=== PATIENT | male | born 1965 | race Caucasian/White ===

== ENCOUNTER 2019-05-07 11:07 | Outpatient (CLI) | payer OTHER ==
[~2019-05-07] VITALS: Ht 172.7 cm; Wt 97.7 kg
--- NOTE | ~2019-05-07 | HEMODYNAMI ---
PATIENT:LISA ORDAZ MEDICAL RECORD: [id number] : 65 LOCATION:[facility] ADMISSION DATE: 05/07/19 Generatedon:05/07/201913:22 Patient name: LISA ORDAZ Patient #: [id number] : 1965 Date of study: 05/07/2019 Page: Of Hemodynamic Procedure Report Patient Data Patient Demographics Procedure consent was obtained First Name: LISA Gender: Male Last Name: ORLIN : 1965 Patient #: [id number] Age: 54 year(s) Race: Unknown SSN: [id number] Additional ID: [id number] Contact details Address: [address] [place] [address] State: [place] City: [place] Zip code: [address] Past Medical History Allergies: No known allergies Admission Admission Data Admission Date: 05/07/2019 Admission Time: 11:07 Admit Source: Other Insurance Payor: Private health insurance [facility] #: [id number] Height (in.): 68 BSA: 2.1 (m2) Height (cm.): 172.72 BMI: 32.39 (kg/m2) Weight (lbs.): 213 Weight (kg.): 96.62 Lab Results Lab Result Date: 05/07/2019 Lab Result Time: 0:00 Biochemistry Name Units Result Min Max BUN mg/dl 22 --(----)-* 7 18 Creatinine mg/dl 1 --(--*-)-- 0.6 1.3 Procedure Procedure Types Cath Procedure Diagnostic Procedure LHC LHC w/Coronaries Sedation Charges Moderate Sedation up to 15 minutes Procedure Description Procedure Date Procedure Date: 05/07/2019 Procedure Start Time: 13:04 Procedure End Time: 13:19 Procedure Staff Name Function Yuan Zuniga MD Performing Physician Shaquille Schultz RT Monitor Abiodun Collins RT Scrub Noemí Valdes RT Scrub Edgar Arredondo RN Nurse Indication Shortness of breath Procedure Data Cath Procedure Fluoroscopy Diagnostic fluoroscopy Total fluoroscopy Time: 3.9 time: 3.9 min min Diagnostic fluoroscopy Total fluoroscopy dose: 711 dose: 711 mGy mGy Contrast Material Contrast Material Type Amount (ml) Isovue 300 87 Entry Location Entry Primary Successful Side Size Upsize Upsize Entry Closure Grissom ccessful Closure Location (Fr) 1 (Fr) 2 (Fr) Remarks Device Remarks Radial Right 6 Fr Mechanical artery Short Compression Estimated blood loss: 5 ml Diagnostic catheters Device Type Used For End Catheter Placement DIAGNOSTIC Dell 110cm Procedure 5Fr catheter ([id number]) Procedure Complications No complications Procedure Medications Medication Administration Route Dosage 0.9% NaCl I.V. 100 ml/hr Oxygen etCO2 Nasal cannula 2 l/min Heparin Flush Bag added to field 2 bags (1000units/500ml NS) Lidocaine 2% added to field 20 Radial Cocktail added to field 1 syringe (Verapamil 2mg/Nitro 400mcg/Heparin 1500units) Versed I.V. 2 mg Fentanyl I.V. 100 mcg Versed I.V. 2 mg Radial Cocktail I.A. 1 syringe (Verapamil 2mg/Nitro 400mcg/Heparin 1500units) Fentanyl I.V. 100 mcg Hemodynamics Rest BSA: 2.1 (m2) O2 Consumption: Estimated: 244.43 (ml/min) O2 Consumption indexed: Estimated:116.4 (ml/min/m) Heart Rate: 64 (bpm) Pressure Samples Time Site Value (mmHg) Purpose Heart Use Rate(bpm) 13:08 LV 113/5,12 Snapshot 87 13:08 AO 96/56(72) Pullback 71 13:08 LV 113/2,14 Pullback 71 Gradients Valve Time Site 1 Site 2 Mean SEP/DFP Peak To Heart Use (mmHg) (sec/min) Peak Rate (mmHg) (bpm) Aortic 13:08 LV AO 10 13 17 71 113/2,14 96/56(72) Calculations Valve P-P Mean Valve Index Valve Source Name Gradient Area Flow (cm2) Aortic 17 10 17 10 Snapshots Pre Cath Intra NCS Post Cath Vital Signs Time Heart Resp SPO2 etCO2 NIBP Rhythm Pain Sedation Rate (ipm) (%) (mmHg) (mmHg) Status Level (bpm) 12:46:36 60 12 98 0 129/63(92) NSR 0 (11) 10(A) , No pain 12:51:31 62 12 94 37.4 123/65(87) NSR 0 (11) 10(A) , No pain 12:55:33 65 13 91 45.6 118/70(93) NSR 0 (11) 10(A) , No pain 12:59:45 62 20 92 36.7 113/61(79) NSR 0 (11) 10(A) , No pain 13:04:31 66 20 96 34.4 107/60(81) NSR 0 (11) 9(A) , No pain 13:08:43 63 18 92 38.1 86/57(72) NSR 0 (11) 9(A) , No pain 13:13:36 64 14 94 46.3 113/60(84) NSR 0 (11) 9(A) , No pain 13:17:48 78 17 94 41.9 106/65(86) NSR 0 (11) 10(A) , No pain Medications Time Medication Route Dose Verified Delivered Reason Notes Effectiveness by by 12:52:38 0.9% NaCl I.V. 100 Edgar Edgar Per ml/hr Maria Elena Arredondo physician RN RN 12:52:48 Oxygen etCO2 2 l/min Edgar Edgar for low 02 Nasal Lorigan Lorigan sats cannula RN RN 12:52:58 Heparin Flush added 2 bags Edgar Edgar used for Bag to Lorigan Lorigan procedure (1000units/500ml [facility] RN RN NS) 12:53:09 Lidocaine 2% added 20ml Edgar Edgar for local to vial Lorigan Lorigan anesthetic field RN RN 12:53:19 Radial Cocktail added 1 Edgar Edgar used for (Verapamil to syringe Lorigan Lorigan procedure 2mg/Nitro field RN RN 400mcg/Heparin 1500units) 12:56:27 Versed I.V. 2 mg Edgar Edgar for sedation Maria Elena Arredondo RN RN 12:56:35 Fentanyl I.V. 100 mcg Edgar Edgar for sedation Maria Elena Arredondo RN RN 13:01:28 Versed I.V. 2 mg Edgar Edgar for sedation Maria Elena Arredondo RN RN 13:06:19 Radial Cocktail I.A. 1 Edgar Yuan for (Verapamil syringe Maria Elena blount 2mg/Nitro RN 400mcg/Heparin 1500units) 13:06:31 Fentanyl I.V. 100 mcg Edgar Edgar for sedation Lorigan Lorigan RN bank teller Log Time Note 12:30:18 Edgar Arredondo RN sent for patient. Start room use. 12:34:09 Informed consent obtained and on chart 12:36:12 Admit Source: Other 12:39:55 Patient allergic to No known allergies 12:40:54 Patient Height : 68 inches 12:41:06 Patient Weight : 213 lbs 12:41:13 Insurance Payor : Private health insurance 12:44:04 Lab Result : BUN 22 mg/dl 12:44:04 Lab Result : Creatinine 1 mg/dl 12:44:14 Indication : Shortness of breath 12:44:43 ACCPatient has been prescribed/administered the following anti-anginal medication within the last 2 weeks: Beta Stephen, ARB 12:45:17 Procedure Status Elective Heart Cath (OP). 12:45:24 Time tracking: Regular hours (M-F 7:00 - 5:00) 12:45:27 Plan of Care:Hemodynamics will remain stable., Cardiac rhythm will remain stable., Comfort level will be maintained., Respiratory function will remain adequate., Patient/ family verbilizes understanding of procedure., Procedure tolerated without complication., Recovers from procedure without complications.. 12:45:30 Patient received from Pre/Post Procedure Room to CCL 1 Alert and oriented. Tansferred to table in Supine position. 12:45:32 Warm blankets applied, and joseline hugger turned on for patient comfort. 12:45:33 Correct patient and procedure confirmed by team. 12:45:33 ECG and BP/O2 sat monitors applied to patient. 12:45:34 Vital chart was started 12:45:36 Baseline sample Acquired. 12:45:40 Rhythm: sinus rhythm 12:45:42 Baseline sample Acquired. 12:45:44 Full Disclosure recording started 12:45:57 H&P Date Dictated: 04/27/2019 Within 30 days and on chart., H&P Addendum completed by physician on day of procedure. (MUST COMPLETE FOR ALL OUTPATIENTS). 12:45:58 Pre-procedure instructions explained to patient. 12:45:59 Pre-op teaching completed and patient verbalized understanding. 12:46:00 Family in waiting room. 12:46:02 Patient NPO since Breakfast. 12:46:04 Is the patient allergic to Iodine/contrast media? No. 12:46:16 Is patient on blood thinner?No 12:46:18 Patient diabetic? No. 12:46:20 Previous problem with sedation/anesthesia? No ? 12:46:22 Snore? Yes 12:46:22 Sleep apnea? Yes 12:46:23 Deviated septum? No 12:46:24 Opens mouth fully? Yes 12:46:25 Sticks out tongue? Yes 12:46:30 Airway obstruction? Yes COPD 12:46:33 Dentures? No ? 12:46:36 Pre procedure: right dorsailis pedis pulse 2+ Normal; easily identifiable; not easily obliterated 12:46:37 Modified Kamran's test Ulnar < 7 seconds 12:46:38 Patient pain scale 0/10 ?. 12:46:45 IV patent on arrival in left forearm with 0.9% NaCl at [facility]. 12:46:47 Lab results completed and on chart. 12:46:50 Right Radial & Right Groin area was prepped with chlora-prep and draped in sterile fashion 12:46:50 Alarms reviewed by R. N. 12:46:51 Sharps counted by scrub and verified by R.N. 12:46:53 Use device set Radial Dx or PCI 12:46:54 ACIST Syringe (84654) opened to sterile field. 12:46:54 Medline Cath Pack ([id number]) opened to sterile field. 12:46:54 Bag Decanter (2002S) opened to sterile field. 12:46:55 ACIST Hand Control (07412) opened to sterile field. 12:46:55 ACIST Manifold (38430) opened to sterile field. 12:46:55 Tegaderm 4 x 4 (1626W) opened to sterile field. 12:46:56 MBrace Wrist Support ([id number]) opened to sterile field. 12:47:00 EMERALD Guide Wire (415-153) opened to sterile field. 12:47:00 SHEATH 6FR RAIN (6689299) opened to sterile field. 12:48:42 Physician arrived 12:48:42 --------ALL STOP TIME OUT------ 12:48:42 Final Timeout: patient, procedure, and site verified with staff and physician. All members of the team are in agreement. 12:48:45 Right Radial & Right Groin site verified by team. 12:48:51 Fire Safety Assessment: A--An alcohol-based skin anteseptic being used preoperatively., C--Open oxygen or nitrous oxide is being used., D--An ESU, laser, or fiber-optic light is being used. 12:48:55 Physical assessment completed. ASA score P 2 - A patient with mild systemic disease as per Yuan Zuniga MD. 12:49:13 2) 60-89 Mildly reduced kidney function, and other findings (as for stage 1) point to kidney disease. 12:49:37 Maximum allowable contrast dose (3.7 X eGFR X 0.75)230 ml. 12:49:40 Sedation plan: IV Moderate Sedation Medication:Versed, Fentanyl 12:52:38 0.9% NaCl 100 ml/hr I.V. was administered by Edgar Arredondo RN; Per physician; 12:52:48 Oxygen 2 l/min etCO2 Nasal cannula was administered by Edgar Arredondo RN; for low 02 sats; 12:52:58 Heparin Flush Bag (1000units/500ml NS) 2 bags added to field was administered by Edgar Arredondo RN; used for procedure; 12:53:09 Lidocaine 2% 20ml vial added to field was administered by Edgar Arredondo RN; for local anesthetic; 12:53:19 Radial Cocktail (Verapamil 2mg/Nitro 400mcg/Heparin 1500units) 1 syringe added to field was administered by Edgar Arredondo RN; used for procedure; 12:56:27 Versed 2 mg I.V. was administered by Edgar Arredondo RN; for sedation; 12:56:35 Fentanyl 100 mcg I.V. was administered by Edgar Arredondo RN; for sedation; 13:01:28 Versed 2 mg I.V. was administered by Edgar Arredondo RN; for sedation; 13:04:12 Procedure started. 13:04:16 Local anesthetic to right radial artery with Lidocaine 2% by Yuan Zuniga MD.INITIAL ACCESS ONLY 13:05:23 A 6 Fr Short sheath was inserted into the Right Radial artery 13:06:19 Radial Cocktail (Verapamil 2mg/Nitro 400mcg/Heparin 1500units) 1 syringe I.A. was administered by Yuan Zuniga MD; for vasodilation; 13:06:27 A DIAGNOSTIC Dell 110cm 5Fr catheter ([id number]) was advanced over the wire and used for Procedure. 13:06:31 Fentanyl 100 mcg I.V. was administered by Edgar Arredondo RN; for sedation; 13:08:07 LV gram done using MOORE 13:08:09 Injector settings: Ml/sec: 5, Volume: 15, 13:08:10 LV hemodynamics recorded. 13:08:30 EF : 45 % 13:10:14 LCA angiography performed. 13:12:04 RCA angiography performed. 13:15:43 Catheter removed. 13:15:56 ZEPHYR REGULAR TR BAND (808780) opened to sterile field. 13:16:09 Sheath removed intact; hemostasis achieved with Mechanical Compression to the Right Radial artery. 13:16:13 Procedure ended.(Physican Out) 13:17:54 ACCDominant side:Left 13:18:01 Fluoroscopy time 03.90 minutes. 13:18:05 Fluoroscopy dose: 711 mGy 13:18:05 Flurop Dose total: 711 13:18:13 Dose Area Product 93461 mGy/cm. 13:18:16 Contrast amount:Isovue 300 87ml. 13:18:19 Maximum allowable dose exceeded? No. 13:18:19 Sharps counted by scrub and verified by R.N. 13:18:24 TR band inflated with 12cc of air. 13:18:25 Insertion/operative site no bleeding no hematoma. 13:18:29 Post right radial artery:stable, soft, clean and dry 13:18:30 Post Procedure Pulses reassessed and unchanged 13:18:33 Post-procedure physical assessment completed. ASA score P 2 - A patient with mild systemic disease as per Yuan Zuniga MD. 13:18:36 Post procedure rhythm: unchanged. 13:18:40 Estimated blood loss: 5 ml 13:18:41 Post procedure instruction explained to patient.Patient verbalizes understanding. 13:18:42 Patient needs reinforcement of post procedure teaching. 13:18:54 Procedure type changed to Cath procedure, Diagnostic procedure, LHC, LHC w/Coronaries, Sedation Charges, Moderate Sedation up to 15 minutes 13:19:10 Procedure and supply charges have been captured, reviewed, submitted and are correct. 13:19:12 Procedure Complication : No complications 13:19:14 Vital chart was stopped 13:19:14 See physician's report for complete and final results. 13:19:15 Report given to Pre/Post Procedure Room. 13:19:17 Patient transfered to Pre/Post Procedure Room with Stretcher. 13:19:20 Procedure ended. 13:19:20 Full Disclosure recording stopped 13:19:26 End room use (Document Last) Device Usage Item Name Manufacture Quantity Catalog Hospital Part Current Minima l Lot# / Number Charge Number Stock Stock Serial# Code ACIST Acist 1 88378 204874 [id number] [id number] 20 Syringe Medical (34722) Systems Inc Medline Medline 1 [id number] 210014 60405 294778 5 Cath Pack ([id number]) Bag Microtek 1 2001S 109513 85226 434058 5 Decanter Medical Inc. () ACIST Hand Acist 1 81829 891661 555206 327398 5 Control Medical (16855) Systems Inc ACIST Acist 1 02990 406232 356278 062081 5 Manifold Medical (56007) Systems Inc Tegaderm 4 3M 1 1626W 008331 879860 877084 5 x 4 (1626W) MBrace Advanced 1 140-0250-00 074701 57349 679636 5 Wrist Vascular Support Dynamics (198325469) EMERALD Cardinal 1 502-455 444341 462612 826429 5 Guide Wire Health (150-455) SHEATH 6FR Cardinal 1 6884251 462753 9102087 123389 5 [facility] Health (3699467) DIAGNOSTIC Terumo 1 40-5023 511908 132607 737423 5 Dell 110cm 5Fr catheter (748299) ZEPHYR Cardinal 1 814782 376914 5804166 406447 5 REGULAR TR Health BAND (258865) Signature Audit [place] Stage Time Signature Unsigned Intra-Procedure 05/07/2019 Shaquille Schultz 1:22:44 PM RT(R) Signatures Performing Physician : Signature : Yuan Zuniga MD Date : Time : Monitor : Shaquille Schultz RT Signature : Date : Time : Nurse : Edgar Lorigan Signature : RN Date : Time : [address] [place] [address]
[2019-05-07] MEDS ORDERED: METOPROLOL TART50 MG PO (11:16)
[2019-05-07] MEDS ORDERED: K-TAB10 MEQ PO (11:16)
[2019-05-07] MEDS ORDERED: LEXAPRO20 MG PO (11:16)
[2019-05-07] MEDS ORDERED: FUROSEMIDE20 MG PO (11:16)
[2019-05-07] MEDS ORDERED: CRESTOR20 MG PO (11:17)
[2019-05-07] MEDS ORDERED: ABILIFY10 MG PO (11:17)
[2019-05-07] MEDS ORDERED: LOSARTAN POTASSIUM/H PO (11:19)
[2019-05-07] MEDS ORDERED: BAYER CHEWABLE81 MG PO (11:20)
[2019-05-07 11:52] VITALS: BP 141/70; Ht 172.7 cm; Wt 97.7 kg
[2019-05-07 12:14] LABS: CALC OSMOLALITY 277 mosm/kg (275-300); CALCIUM 9.4 mg/dL (8.5-10.1); CARBON DIOXIDE 29.3 mmol/L (21.0-32.0); CHLORIDE - SERUM 102 mmol/L (98-107); GLUCOSE 87 mg/dL (74-106); SODIUM 138 mmol/L (136-145); UREA NITROGEN 22 mg/dL (7-18); eGFR NON AFRICAN AMERICAN 83 mL/min (90-120)
[2019-05-07 12:30] LABS: CHOL - HDL RATIO 4.1 ratio (2.3-4.9); LDL-HDL RATIO 1.9 ratio (1.5-3.5)
[2019-05-07 12:46] LABS: BASOPHILS 0.5 % (0-2); EOSINOPHILS 2.1 % (0-7); HEMATOCRIT 46.3 % (42.0-54.0); HEMOGLOBIN 15.8 g/dL (13.5-17.5); IMMATURE GRANULOCYTES 0.2 % (0-5); MCH 31.1 pg (26.0-34.0); MCHC 34.1 g/dL (31.0-37.0); MCV 91.1 fL (80.0-100.0); MEAN PLATELET VOLUME 11.2 fL (7.4-10.4); MONOCYTES 7.8 % (2-11); NEUTROPHILS 59.4 % (40-80); PLATELET COUNT 200 10x3/uL (130-400); RBC 5.08 10x6/uL (4.20-6.10); RDW 13.9 % (11.5-14.5); WBC 10.1 10x3/uL (4.8-10.8)
--- NOTE | 2019-05-07 13:54 | NUR ---
SANDWICH AND PO FLUIDS SERVED. PT IS ALERT AND DENIES ANY C/O. ZEPHYR BAND IS CDI TO RIGHT WRIST, FINGERS WARM AND CAP REFILL IS BRISK. SINUS ERIN, RATE IS 59. BP IS 109/56.
--- NOTE | 2019-05-07 14:16 | NUR ---
BAND CDI RIGHT WRIST, FINGERS WARM AND CAP REFILL IS BRISK. PT HAS LATRICE SANDWICH AND PO FLUIDS WITH NO NAUSEA. VSS.
--- NOTE | 2019-05-07 14:24 | NUR ---
PT ALERT, SITTING UP IN BED, VISITING WITH . DENIES ANY C/O. BAND IS CDI, FINGERS WARM AND CAP REFILL IS BRISK.
--- NOTE | 2019-05-07 14:57 | NUR ---
2 CC OF AIR WEANED FROM TR BAND WITH NO BLEEDING NOTED. FINGERS WARM AND CAP REFILL IS BRISK. PT IS ALERT AND DENIES ANY C/O.
--- NOTE | 2019-05-07 15:17 | NUR ---
3 CC OF AIR HAS BEEN WEANED FROM BAND WITH NO BLEEDING NOTED.
--- NOTE | 2019-05-07 15:47 | NUR ---
1535 ALL REMAINING AIR WEANED FROM TR BAND WITH NO BLEEDING NOTED. FINGERS WARM AND PULSES PALPABLE. PT DRESSING FOR DC IWTH ASSIST. DC INSTRUCTIONS REVIEWED WITH PT WHO VERBALIZES UNDERSTANDING. DR MERRITT'S NURSE HAS ROUNDED ON PT AND HE HAS APPOINTMENT AT THAT CLINIC ON TUESDAY.
--- NOTE | 2019-05-07 16:14 | NUR ---
1600 2X2 AND TEGADERM REMAIN CDI TO RIGHT WRIST, WRIST IMMOBILIZER IN PLACE. RADIAL PULSE PALPABLE. FINGERS WARM AND CAP REFILL IS BRISK. PT IS ALERT AND DENIES ANY C/O. HAS AMBULATED TO THE BATHROOM AND VOIDED QS. PT ESCORTED TO PRIVATE AUTO VIA WC BY NURSE WITH DRIVING HIM HOME.
== END 2019-05-07 16:00 | disposition home or self-care (01) ==
LOC: D.CATH 11:07
PROVIDERS: ATTEND Internal Medicine Cardiovascular Disease
DX: I25.110 Atherosclerotic heart disease of native coronary artery with unstable angina pectoris (principal); I51.9 Heart disease, unspecified; Z01.812 Encounter for preprocedural laboratory examination

== ENCOUNTER 2019-05-15 10:00 | Inpatient (IN) | payer OTHER ==
[2019-05-14 11:15] LABS: BASOPHILS 0.5 % (0-2); EOSINOPHILS 3.2 % (0-7); HEMATOCRIT 43.7 % (42.0-54.0); HEMOGLOBIN 15.1 g/dL (13.5-17.5); IMMATURE GRANULOCYTES 0.2 % (0-5); LYMPHOCYTES 24.6 % (15-50); MCHC 34.6 g/dL (31.0-37.0); MCV 89.7 fL (80.0-100.0); MEAN PLATELET VOLUME 10.6 fL (7.4-10.4); MONOCYTES 9.1 % (2-11); NEUTROPHILS 62.4 % (40-80); PLATELET COUNT 201 10x3/uL (130-400); RBC 4.87 10x6/uL (4.20-6.10); RDW 13.9 % (11.5-14.5); WBC 10.8 10x3/uL (4.8-10.8)
[2019-05-14 11:25] LABS: APTT 29.1 SECONDS (22.8-39.4); INR 0.96 (0.85-1.17); PROTIME 12.3 SECONDS (11.6-15.0)
[2019-05-14 11:32] LABS: ALBUMIN 3.8 g/dL (3.4-5.0); BILIRUBIN - TOTAL 0.48 mg/dL (0.2-1.3); CARBON DIOXIDE 29.6 mmol/L (21.0-32.0); CREATININE - SERUM 1.1 mg/dL (0.6-1.3); PHOSPHOROUS 3.4 mg/dL (2.5-4.9); POTASSIUM - SERUM 3.6 mmol/L (3.5-5.1); PROTEIN - SERUM 7.2 g/dL (6.4-8.2); URIC ACID 7.1 mg/dL (2.6-7.2)
[2019-05-14 11:33] LABS: APPEARANCE CLEAR (CLEAR); BILIRUBIN NEGATIVE (NEGATIVE); COLOR YELLOW (YELLOW); GLUCOSE 1000 mg/dL (NEGATIVE); KETONE NEGATIVE (NEGATIVE); NITRITE NEGATIVE (NEGATIVE); PROTEIN NEGATIVE (NEGATIVE); UROBILINOGEN NORMAL (NORMAL)
[2019-05-14 11:53] LABS: T4 THYROXIN - FREE 0.87 ng/dL (0.76-1.46); THYROID STIMULATING HORMONE 3.3 uIU/mL (0.36-3.74)
[~2019-05-15] VITALS: Ht 172.7 cm; Wt 90.9 kg
[~2019-05-15 10:00] MED LIST: ABILIFY10 MG PO; BAYER CHEWABLE81 MG PO; CRESTOR20 MG PO; FUROSEMIDE20 MG PO; K-TAB10 MEQ PO; LEXAPRO20 MG PO; LOSARTAN POTASSIUM/H PO; METOPROLOL TART50 MG PO
[2019-05-17] VITALS (43 sets, daily range): BP systolic 97–177; BP diastolic 54–83; BMI 29.5
[2019-05-18] VITALS (28 sets, daily range): BP systolic 108–145; BP diastolic 50–83
[2019-05-18 06:54] LABS: ALBUMIN 3.1 g/dL (3.4-5.0); ANION GAP 11.7 mmol/L (8-16); BILIRUBIN - TOTAL 0.42 mg/dL (0.2-1.3); CALCIUM 7.8 mg/dL (8.5-10.1); CARBON DIOXIDE 27.5 mmol/L (21.0-32.0); CREATININE - SERUM 1.2 mg/dL (0.6-1.3); POTASSIUM - SERUM 4.2 mmol/L (3.5-5.1); PROTEIN - SERUM 5.9 g/dL (6.4-8.2)
[2019-05-18 07:41] LABS: HEMOGLOBIN 11.9 g/dL (13.5-17.5); MCH 30.1 pg (26.0-34.0); MCHC 33.1 g/dL (31.0-37.0); MCV 90.9 fL (80.0-100.0); RBC 3.96 10x6/uL (4.20-6.10); RDW 14.2 % (11.5-14.5)
--- NOTE | 2019-05-18 08:01 | OP ---
PATIENT NAME: LISA ORDAZ MEDICAL RECORD: [id number] :65 LOCATION:D.CVI D.CV03 ADMISSION DATE:05/17/19 SURGEON: CECIL MERRITT MD DATE OF OPERATION: 05/17/2019 SURGEON: Cecil Merritt MD ASSISTANTS: 1. Nahum Simmons MD 2. Eleno Flanagan OPERATIONS PERFORMED: 1. Coronary artery bypass graft times 3 (left internal mammary artery to LAD, reverse saphenous vein graft from aorta to obtuse marginal, and aorta to posterior descending artery). 2. Endoscopic saphenous vein harvest. 3. Lysis of intrapleural adhesions. PREOPERATIVE DIAGNOSIS: Coronary artery disease. POSTOPERATIVE DIAGNOSES: Coronary artery disease plus ischemic cardiomyopathy. ANESTHESIA: General endotracheal anesthesia. ESTIMATED BLOOD LOSS: Total cardiopulmonary bypass with Cell Saver retransfusion. COMPLICATIONS: None. SPECIMENS: None. CONDITION: Stable. DISPOSITION: CV ICU. OPERATIVE FINDINGS: 1. Transesophageal echocardiography revealed 30% ejection fraction with 1+ mitral regurgitation. After separation from cardiopulmonary bypass, on low-dose dopamine, the patient had 40% ejection fraction with continued septal dyskinesis and only trace mitral regurgitation. 2. The left internal mammary artery to LAD was deep intraepicardial 2.0-mm vessel. 3. The circumflex and bifurcating obtuse marginal had severe disease, 1.25-mm thin-walled vessel. 4. The right coronary artery and ongoing right coronary artery were severely calcified throughout with some moderate disease in the posterior descending artery, which was a 1.25-mm vessel, again a thin-walled vessel. 5. The patient had a large fatty heart. 6. Adhesions to the left upper lobe were taken down using electrocautery. OPERATIVE INDICATION: Coronary artery disease with increasing symptoms. OPERATIVE SUMMARY IN DETAIL: The patient was brought to the operating suite. General anesthesia was obtained. The patient was prepped and draped. Greater saphenous vein was harvested endoscopically from the right lower extremity. OPERATIVE REPORT [id number] LISA ORDAZ Side branches were divided with electrocautery. The vessel was ligated proximally and distally, and removed. Side branches were tied and thin sites were oversewn. The phys assistant surgeon for the case was Dr. Simmons. His contribution consisted of harvesting the vein graft, tying the branches, oversewing the thin spots, and ensuring hemostasis in the vein. His use saved approximately 30-45 minutes of general anesthesia time. The leg was irrigated, closed in 2 layers, and later wrapped with an elastic wrap. Median sternotomy incision was made. Subcutaneous tissue was divided with electrocautery. Sternum was divided with a saw. Left hemisternum was elevated. Left pleural cavity was entered. Left internal mammary vein was taken down as a pedicle graft. Sternal retractor was placed. Pericardium was opened. Heparin was given. Aorta was cannulated. Dual stage venous cannula was inserted. Internal mammary was clipped distally and made ready for anastomosis. Activated clotting time was appropriately elevated. The patient was placed on cardiopulmonary bypass. Sites for distal anastomosis were selected. Antegrade cardioplegia cannula was inserted. The patient's temperature was allowed to drift downwardly. Cross-clamp was placed. Cardioplegia was given antegrade and this was repeated at 15-minute intervals including down the completed vein grafts. Distal anastomoses were performed in standard technique and proximal anastomosis with single cross-clamp technique. Aortic root was de-aired by removing the clamp, tying the proximal anastomosis, deairing the vein grafts, and then restoring the flow. The patient initially had some ventricular dysrhythmias that responded to amiodarone and eventually a full sinus rhythm, weaned from cardiopulmonary bypass and was stable. The patient was decannulated. Aortic cannulation site was oversewn with a nonpledgeted Prolene suture. Protamine was given. Thorough irrigation was undertaken. Grafts lay appropriately. The drains were placed in the mediastinum and the left pleural cavity with the tip in the right pleural cavity. Ventricular pacing wires were placed. The pericardial fat was loosely reapproximated in the midline. Left chest was investigated for any bleeding, evacuated, and drains were placed. Sternum was closed with wires. Fascia was closed. Subcutaneous tissue was closed. Skin was closed. Dermabond was placed. Needle and sponge counts were reported as correct. The patient was taken to the ICU in stable condition. TRANSINT:[id number] Voice Confirmation ID: [id number] DOCUMENT ID: [id number] CECIL MERRITT MD at 0801 CC: ASCENCION JACOBO M.D. and ALFONSO BARRIOS MD [id number] DICTATION DATE: 05/17/19 1434 BICYCLE INSPECTOR: 05/17/19 1637 ADM IN [facility] [address] [place] [address]
--- NOTE | 2019-05-18 19:44 | MORECARE ---
CASE MANAGEMENT DISCHARGE SUMMARY PATIENT: LISA ORDAZ UNIT: [id number] ADM DATE: 05/17/19 AGE: 54 : 65 SEX: M ROOM/BED: D.03 AUTHOR: GERA,DOC PHYSICIAN: REFERRING PHYSICIAN: CECIL MERRITT MD DATE OF SERVICE: 05/18/19 Discharge Plan Patient Name[facility]ISA ORDA[facility] [place] [facility] 1965 Planned Disposition: Home Anticipated Discharge Date: Discharge Date: Expected LOS: Initial Reviewer: [email or web address] Initial Review Date: 05/17/2019 Generated: 05/18/19 8:44 pm Comments DCP- Discharge Planning Updated by [email or web address]: Iva Bermeo on 05/18/19 6:[address] Patient Name: LISA ORDAZ Admission Status: Elective Accout number: [id number] Admission Date: 05-17-2019 : 1965 Admission Diagnosis:ATHSCL HEART DISEASE OF [place] ART W UNSTABLE ANG P Attending: CECIL MERRITT Current LOS: 1 Anticipated DC Date: Planned Disposition: Home Primary Insurance: registracija vozila INS EXCHANGE Discharge Planning Comments: CM met with patient at bedside after explaining CM role and obtaining verbal consent. Patient lives at home with his Curly and plans to return there upon discharge. Patient feels this would be a safe discharge. CM discussed availability / needs of home health and medical equipment. Patient denies any discharge needs at this time. Patient states he will have his drive him home upon discharge. CM will continue to follow and assist as needed with discharge planning / needs. Social Services Coordinator: Iva Bermeo DCPIA - Discharge Planning Initial Assessment Updated by [email or web address]: Iva Bermeo on 05/18/19 7:42 pm * Is the patient Alert and Oriented? Yes * How many steps to enter\exit or inside your home? * PCP ALFONSO BARRIOS * Pharmacy [facility] * Preadmission Environment Home with Family * ADLs Independent * Equipment None * List name and contact numbers for known caregivers / representatives who currently or will assist patient after discharge: CURLY ORDAZ - SPOUSE - [phone] * Verbal permission to speak to the caregivers and representatives has been obtained from the patient. Yes * Community resources currently utilized None * Additional services required to return to the preadmission environment? No * Can the patient safely return to the preadmission environment? Yes * Has this patient been hospitalized within the prior 30 days at any hospital? No Patient Name: LISA ORDAZ Page [id number] at 1944 All edits/amendments must be made on the electronic document DICTATION DATE: 05/18/191943 SOFTWARE QUALITY ASSURANCE ANALYST: GEORGES 05/18/191943 RPT#: [id number] DC DATE: STATUS: ADM IN [facility] [address] [place] [address] END OF REPORT
[2019-05-19] VITALS (24 sets, daily range): BP systolic 91–144; BP diastolic 50–97
[2019-05-19 05:35] LABS: HEMATOCRIT 35.5 % (42.0-54.0); HEMOGLOBIN 11.8 g/dL (13.5-17.5); MCH 30.5 pg (26.0-34.0); MCHC 33.2 g/dL (31.0-37.0); MCV 91.7 fL (80.0-100.0); MEAN PLATELET VOLUME 10.7 fL (7.4-10.4); RBC 3.87 10x6/uL (4.20-6.10); RDW 14.2 % (11.5-14.5); WBC 17.9 10x3/uL (4.8-10.8)
[2019-05-19 05:55] LABS: ANION GAP 11.8 mmol/L (8-16); BILIRUBIN - TOTAL 0.93 mg/dL (0.2-1.3); CALCIUM 8.9 mg/dL (8.5-10.1); CARBON DIOXIDE 28.8 mmol/L (21.0-32.0); CREATININE - SERUM 1.1 mg/dL (0.6-1.3); POTASSIUM - SERUM 4.6 mmol/L (3.5-5.1); PROTEIN - SERUM 6.4 g/dL (6.4-8.2)
[2019-05-20] VITALS (23 sets, daily range): BP systolic 90–150; BP diastolic 45–83
[2019-05-20 05:30] LABS: HEMATOCRIT 32.6 % (42.0-54.0); HEMOGLOBIN 10.7 g/dL (13.5-17.5); MCHC 32.8 g/dL (31.0-37.0); MCV 91.3 fL (80.0-100.0); MEAN PLATELET VOLUME 10.7 fL (7.4-10.4); RBC 3.57 10x6/uL (4.20-6.10)
[2019-05-20 05:31] LABS: WBC 12.8 10x3/uL (4.8-10.8)
[2019-05-20 05:57] LABS: ALBUMIN 2.8 g/dL (3.4-5.0); ALKALINE PHOSPHATASE 76 U/L (46-116); ALT (SGPT) 27 U/L (10-68); BILIRUBIN - TOTAL 0.74 mg/dL (0.2-1.3); CALC OSMOLALITY 275 mosm/kg (275-300); CALCIUM 8.7 mg/dL (8.5-10.1); CARBON DIOXIDE 27.3 mmol/L (21.0-32.0); CHLORIDE - SERUM 101 mmol/L (98-107); CREATININE - SERUM 0.9 mg/dL (0.6-1.3); GLUCOSE 104 mg/dL (74-106); POTASSIUM - SERUM 4.1 mmol/L (3.5-5.1); PROTEIN - SERUM 6.4 g/dL (6.4-8.2); SODIUM 138 mmol/L (136-145); UREA NITROGEN 12 mg/dL (7-18); eGFR NON AFRICAN AMERICAN > 90 mL/min (90-120)
--- NOTE | 2019-05-20 09:24 | EC ---
PATIENT:LISA ORDAZ DATE OF SERVICE: 05/17/19 SEX: M MEDICAL RECORD: [id number] DATE OF : 65 [facility] AGE OF PATIENT: 54 ADMISSION DATE: 05/17/19 REFERRING PHYSICIAN: INTERPRETING PHYSICIAN: QUIANA MUNGUIA MD ECHOCARDIOGRAM REPORT ECHO CHARGES Date: 05/17/19 CLINICAL DIAGNOSIS: ECHOCARDIOGRAPHIC MEASUREMENTS (adult normal given) AC root (d.<3.7cm) cm LV Septum d (<1.2 cm> cm Valve Excursion cm LV Septum (systole) cm Left Atria (s.<4.0cm> cm LVPW d(<1.2cm) cm RV (d.<2.3cm) cm LVPW (sytole) cm LV diastole(<5.6CM) cm MV E-F(>70mm/sec) cm LV systole cm LVOT Diameter cm MV exc.(>10mm) cm Est.ejection fraction (50-75%) % DOPPLER: LVIT cm/sec A cm/sec E cm/sec LA cm/sec RVSP mmHg LVOT cm/sec AOP1/2T m/s Asc. Ao cm/sec RVOT cm/sec RA cm/sec PA cm/sec AV Gradient Peak mmHg AV Mean mmHg AV Area cm MV Gradient Peak mmHg MV Mean mmHg MV Area cm COMMENTS: Trade Show Coordinator: Helen LUCEROOE Publications Inspector: Aurora Zuniga TAPE# PACS Pericardial Effusion DATE OF SERVICE: 05/19/2019 PROCEDURE: Intraoperative LIGIA. Procedure shows LV internal dimensions is grossly appear upper limits of normal. There is a global hypokinetic right ventricle with more marked inferior hypokinesis. Ejection function reduced 30-35%. Postop shows improvement in a segmental wall motion with EF approximately 40% to 45% and mild MR. TRANSINT:[id number] Voice Confirmation ID: [id number] DOCUMENT ID: [id number] ECHOCARDIOGRAM REPORT [id number] LISA ORDAZ QUIANA MUNGUIA MD at 0924 CC: [id number] DICTATION DATE: 05/19/19 1014 GLYCERIN SUPERVISOR: 05/19/19 [address] [place] [address]
[2019-05-21] VITALS (24 sets, daily range): BP systolic 97–148; BP diastolic 42–81; Ht 172.7 cm; Wt 90.9 kg
[2019-05-21 05:59] LABS: HEMATOCRIT 30.7 % (42.0-54.0); HEMOGLOBIN 10.2 g/dL (13.5-17.5); MCH 30.2 pg (26.0-34.0); MCHC 33.2 g/dL (31.0-37.0); MCV 90.8 fL (80.0-100.0); MEAN PLATELET VOLUME 10.5 fL (7.4-10.4); RBC 3.38 10x6/uL (4.20-6.10); RDW 14.1 % (11.5-14.5)
[2019-05-21 06:01] LABS: WBC 9.3 10x3/uL (4.8-10.8)
[2019-05-21 06:15] LABS: ALBUMIN 2.6 g/dL (3.4-5.0); ALKALINE PHOSPHATASE 75 U/L (46-116); ALT (SGPT) 27 U/L (10-68); BILIRUBIN - TOTAL 0.74 mg/dL (0.2-1.3); CALC OSMOLALITY 277 mosm/kg (275-300); CALCIUM 8.7 mg/dL (8.5-10.1); CARBON DIOXIDE 29.3 mmol/L (21.0-32.0); CHLORIDE - SERUM 102 mmol/L (98-107); GLUCOSE 97 mg/dL (74-106); POTASSIUM - SERUM 4.4 mmol/L (3.5-5.1); PROTEIN - SERUM 6.5 g/dL (6.4-8.2); SODIUM 139 mmol/L (136-145); UREA NITROGEN 13 mg/dL (7-18); eGFR NON AFRICAN AMERICAN 83 mL/min (90-120)
[2019-05-22] VITALS (13 sets, daily range): BP systolic 87–144; BP diastolic 54–73
[2019-05-22 06:37] LABS: HEMATOCRIT 30.7 % (42.0-54.0); HEMOGLOBIN 10.1 g/dL (13.5-17.5); MCHC 32.9 g/dL (31.0-37.0); MCV 91.1 fL (80.0-100.0); MEAN PLATELET VOLUME 9.8 fL (7.4-10.4); RBC 3.37 10x6/uL (4.20-6.10); RDW 14.3 % (11.5-14.5); WBC 8.4 10x3/uL (4.8-10.8)
[2019-05-22 06:54] LABS: ALBUMIN 2.6 g/dL (3.4-5.0); ALKALINE PHOSPHATASE 73 U/L (46-116); BILIRUBIN - TOTAL 0.44 mg/dL (0.2-1.3); CALC OSMOLALITY 281 mosm/kg (275-300); CALCIUM 8.8 mg/dL (8.5-10.1); CARBON DIOXIDE 30.9 mmol/L (21.0-32.0); CHLORIDE - SERUM 104 mmol/L (98-107); GLUCOSE 102 mg/dL (74-106); PROTEIN - SERUM 6.7 g/dL (6.4-8.2); SODIUM 141 mmol/L (136-145); UREA NITROGEN 15 mg/dL (7-18); eGFR NON AFRICAN AMERICAN 83 mL/min (90-120)
[2019-05-22 06:58] LABS: ALT (SGPT) 35 U/L (10-68)
[2019-05-22] MEDS ORDERED: AMIODARONE HCL200 MG PO (14:02)
[2019-05-22] MEDS ORDERED: LOPRESSOR25 MG PO (14:03)
[2019-05-22] MEDS ORDERED: PERCOCET 5-3251 TAB PO (14:10)
[2019-05-22] MEDS ORDERED: COLACE100 MG PO (14:10)
--- NOTE | 2019-05-22 17:48 | MORECARE ---
CASE MANAGEMENT DISCHARGE SUMMARY PATIENT: LISA ORDAZ UNIT: [id number] ADM DATE: 05/17/19 AGE: 54 : 65 SEX: M ROOM/BED: D.03 AUTHOR: KASSANDRA BOSS PHYSICIAN: REFERRING PHYSICIAN: CECIL MERRITT MD DATE OF SERVICE: 05/22/19 Discharge Plan Patient Name: LISA ORDAZ Facility: [facility]:[place] : 1965 Planned Disposition: Home Anticipated Discharge Date: Discharge Date: 05/22/2019 Expected LOS: Initial Reviewer: [email or web address] Initial Review Date: 05/17/2019 Generated: 05/22/19 6:48 pm Comments DCP- Discharge Planning Updated by [email or web address]: Iva Bermeo on 05/22/19 4:[address] Patient Name: LISA ORDAZ Encounter No: [id number] : 1965 Primary Insurance: [employer] Anticipated DC Date: Planned Disposition: Home External Planned Provider: : DCP follow-up note: Patient and family in agreement with discharge plan. No changes to plan. Case management will follow and assist as needed. 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 Patient lives at home with his Curly and plans to return there upon discharge. Patient feels this would be a safe discharge. CM discussed availability / needs of home health and medical equipment. Patient denies any discharge needs at this time. Patient states he will have his drive him home upon discharge. CM will continue to follow and assist as needed with discharge planning / needs. [employer]: Iva Bermeo DCPIA - Discharge Planning Initial Assessment Updated by [email or web address]: Iva Bermeo on 05/18/19 7:42 pm * Is the patient Alert and Oriented? Yes * How many steps to enter\exit or inside your home? * PCP ALFONSO BARRIOS * Pharmacy [facility] * Preadmission Environment Home with Family * ADLs Independent * Equipment None * List name and contact numbers for known caregivers / representatives who currently or will assist patient after discharge: CURLY ORDAZ - [facility] - [phone] * Verbal permission to speak to the caregivers and representatives has been obtained from the patient. Yes * Community resources currently utilized None * Additional services required to return to the preadmission environment? No * Can the patient safely return to the preadmission environment? Yes * Has this patient been hospitalized within the prior 30 days at any hospital? No Last DP export: 05/18/19 6:44 p Patient Name: LISA ORDAZ Page [id number] at 1748 All edits/amendments must be made on the electronic document DICTATION DATE: 05/22/191747 IMAGING TECHNICIAN: GEORGES 05/22/191747 RPT#: [id number] DC DATE:05/22/19 STATUS: DIS IN [facility] [address] [place] [address] END OF REPORT
== END 2019-05-22 15:52 | disposition home or self-care (01) | DRG 236 ==
LOC: D.SDCHOLD 10:00 → D.CVICU 05-17 05:00 → D.SDCHOLD 05-17 07:30 → D.CVICU 05-17 12:29
PROVIDERS: ADMIT Thoracic Surgery (Cardiothoracic Vascular Surgery); ATTEND Thoracic Surgery (Cardiothoracic Vascular Surgery)
PROC: 021109W Bypass Coronary Artery, Two Arteries from Aorta with Autologous Venous Tissue, Open Approach (ICD-10-PCS; 2019-05-17)
PROC: 06BP4ZZ Excision of Right Saphenous Vein, Percutaneous Endoscopic Approach (ICD-10-PCS; 2019-05-17)
PROC: 5A1221Z Performance of Cardiac Output, Continuous (ICD-10-PCS; 2019-05-17)
PROC: B244ZZ4 Ultrasonography of Right Heart, Transesophageal (ICD-10-PCS; 2019-05-17)
PROC: 02100Z9 Bypass Coronary Artery, One Artery from Left Internal Mammary, Open Approach (ICD-10-PCS; principal; 2019-05-17 07:30)
DX: I25.110 Atherosclerotic heart disease of native coronary artery with unstable angina pectoris (principal); F17.200 Nicotine dependence, unspecified, uncomplicated; J44.9 Chronic obstructive pulmonary disease, unspecified; I10 Essential (primary) hypertension; R06.00 Dyspnea, unspecified

== ENCOUNTER → 2019-06-06 12:16 | Outpatient (CLI) | payer OTHER ==
[2019-05-21 14:00] VITALS: BMI 33.0
[~2019-06-06 12:16] MED LIST changes: +AMIODARONE HCL200 MG PO; +COLACE100 MG PO; +LOPRESSOR25 MG PO; +PERCOCET 5-3251 TAB PO
[2019-06-06 12:54] LABS: HEMATOCRIT 38.3 % (42.0-54.0); HEMOGLOBIN 12.7 g/dL (13.5-17.5); MCH 29.7 pg (26.0-34.0); MCHC 33.2 g/dL (31.0-37.0); MCV 89.5 fL (80.0-100.0); MEAN PLATELET VOLUME 9.5 fL (7.4-10.4); RBC 4.28 10x6/uL (4.20-6.10); RDW 14.2 % (11.5-14.5); WBC 12.9 10x3/uL (4.8-10.8)
[2019-06-06 13:19] LABS: ALBUMIN 3.7 g/dL (3.4-5.0); ANION GAP 16.8 mmol/L (8-16); BILIRUBIN - TOTAL 0.26 mg/dL (0.2-1.3); CALCIUM 9.3 mg/dL (8.5-10.1); CARBON DIOXIDE 26.8 mmol/L (21.0-32.0); CREATININE - SERUM 1.3 mg/dL (0.6-1.3); POTASSIUM - SERUM 4.6 mmol/L (3.5-5.1); PROTEIN - SERUM 7.5 g/dL (6.4-8.2)
== END | disposition home or self-care (01) ==
LOC: D.LAB 12:16
PROVIDERS: ATTEND Orthopaedic Surgery
DX: J90 Pleural effusion, not elsewhere classified (principal); D64.9 Anemia, unspecified